=== PATIENT | male | born 1960 | race Two or more races ===

== ENCOUNTER → 2025-07-15 | Outpatient (CLI) | payer OTHER, MEDICAID ==
[~2025-07-15] VITALS: Ht 167.6 cm; Wt 80.3 kg
[~2025-07-15] MED LIST: ENAL5TAB22 PO; GABA400C PO; INSU70IN3 SC; OXYC-113 PO; ROSU10TA16 PO; SEMA2INJ3 SC
[2025-07-15 10:58] LABS: Hematocrit 45.5 % (41.0-53.0); Hemoglobin 15.4 g/dL (13.5-17.5); Mean Corpuscular Hemoglobin 27.0 pg (28.0-32.0); Mean Corpuscular Volume 80.0 fL (80.0-100.0); Nucleated Red Blood Cells % 0.2 %
[2025-07-15 11:00] LABS: Urine Protein, UAD Negative (Negative)
[2025-07-15 11:16] LABS: INR 1.13 (0.9-1.15); Partial Thromboplastin Time 27.9 SEC (24.5-34.5); Prothrombin Time 11.8 sec (9.3-11.8)
[2025-07-15 11:28] LABS: Alanine Aminotransferase 21 U/L (7-40); Albumin 4.7 g/dL (3.2-4.8); Alkaline Phosphatase 79 U/L (46-116); Anion Gap 7 (5-15); BUN/Creatinine Ratio 9.5 (10.0-20.0); Calcium 9.4 mg/dL (8.7-10.4); Carbon Dioxide 29 mmol/L (20-31); Chloride 103 mmol/L (98-107); Potassium 4.1 mmol/L (3.5-5.1); Sodium 139 mmol/L (136-145); Total Protein 7.0 g/dL (5.7-8.2)
[2025-07-15 11:29] LABS: Bilirubin, Total 1.0 mg/dL (0.2-1.0)
[2025-07-15 11:38] LABS: Blood Urea Nitrogen 8 mg/dL (9-23); Glucose 213 mg/dL (74-106)
== END | disposition home or self-care (01) ==
LOC: LAB 09:48 → EDSTATUS 07-21 09:15
PROVIDERS: ATTEND Internal Medicine Gastroenterology
DX: Z01.812 Encounter for preprocedural laboratory examination (principal); Z12.11 Encounter for screening for malignant neoplasm of colon; Z79.899 Other long term (current) drug therapy
CPT/HCPCS: 36415; 80053; 81001; 85025; 85610; 85730